=== PATIENT | female | born 1985 | race Caucasian/White ===

== ENCOUNTER → 2018-04-17 | Outpatient (CLI) | payer OTHER, MEDICAID ==
[2018-04-17 14:50] LABS: ALBUMIN 3.8 GM/DL (3.2-5.2); ALKALINE PHOSPHATASE 82 U/L (45-117); ALT/SGPT 26 U/L (12-78); ANION GAP 9 MEQ/L (8-16); AST/SGOT 17 U/L (7-37); BILIRUBIN,TOTAL 0.5 MG/DL (0.2-1.0); BLOOD UREA NITROGEN 10 MG/DL (7-18); CALCIUM LEVEL 8.8 MG/DL (8.5-10.1); CARBON DIOXIDE LEVEL 24 MEQ/L (21-32); CHLORIDE LEVEL 107 MEQ/L (98-107); CHOLESTEROL LEVEL 175 MG/DL (<200); CHOLESTEROL RISK RATIO 3.977 (<5); CREATININE FOR GFR 0.67 MG/DL (0.55-1.30); FREE T4 0.92 NG/DL (0.76-1.46); GLOMERULAR FILTRATION RATE > 60.0 (>60); GLUCOSE, FASTING 79 MG/DL (70-100); HDL CHOLESTEROL 44 MG/DL (>40); LDL CHOLESTEROL 109 MG/DL (<100); NON-HDL-C 131 MG/DL; SODIUM LEVEL 140 MEQ/L (136-145); TOTAL PROTEIN 7.2 GM/DL (6.4-8.2); TRIGLYCERIDES LEVEL 108 MG/DL (<150)
[2018-04-17 16:37] LABS: ALBUMIN/GLOBULIN RATIO 1.12 (1.00-1.93)
== END ==
LOC: M LAB 13:10
DX: E66.01 Morbid (severe) obesity due to excess calories (principal); I10 Essential (primary) hypertension
CPT/HCPCS: 84443

== ENCOUNTER → 2019-02-14 | Outpatient (CLI) | payer OTHER, MEDICAID | LOC: M SMT 14:03 | PROVIDERS: ATTEND Advanced Practice Midwife | DX: Z36.89 Encounter for other specified antenatal screening (principal); Z3A.00 Weeks of gestation of pregnancy not specified ==

== ENCOUNTER → 2019-04-16 | Outpatient (CLI) | payer OTHER ==
--- NOTE | 2019-04-16 11:46 | REP ---
OB ULTRASOUND: Real-time sonographic evaluation of gravid uterus performed. There is a single living intrauterine gestation, estimated gestational age 19 weeks 4 days, EDC 09/06/2019. Today's measurements indicate appropriate growth. BPD 46 mm = 19 weeks 5 days, 55th percentile HC 166 mm = 19 weeks 2 days, 42nd percentile AC 137 mm = 19 weeks 1 day, 40th percentile Femur length 29 mm = 18 weeks 5 days, 29th percentile HC/AC ratio 1.21 within normal range. Estimated weight 270 grams, 27th percentile. Cervix is closed and measures 3.3 cm in length. heart rate 145 beats per minute. SEEN/GROSSLY UNREMARKABLE Lateral ventricles Yes Posterior fossa Yes Upper lip Yes Four-chamber heart No LVOT Yes RVOT No Stomach Yes Cord insertion Yes Three vessel cord Yes Kidneys No Bladder Yes Spine No position: Variable. Placenta: Anterior and grade 0 with no previa or abruption. Amniotic fluid: Within normal limits. Electronically Signed by Johnnie Tinsley MD 04/17/2019 11:17 A
== END ==
LOC: M RAD 10:22
PROVIDERS: ATTEND Advanced Practice Midwife
DX: Z34.82 Encounter for supervision of other normal pregnancy, second trimester (principal)

== ENCOUNTER → 2019-05-02 | Outpatient (CLI) | payer OTHER ==
--- NOTE | 2019-05-03 03:07 | REP ---
Clinical: Anatomical evaluation. Comparison: 04/16/2019 . Findings: Examination demonstrates a single live intrauterine in transverse (head to maternal left) presentation. motion is identified by technologist. Placenta is noted anterior and grade O without evidence for placenta previa or abruption. Amniotic fluid volume is normal. Cervix measures 4.3 cm in length and appears closed. No evidence for nuchal cord. Gestational age by LMP 21 weeks 6 days with JAY 09/06/2019 . Gestational age by current measurements 21 weeks 4 days with JAY 09/26/2019 . FHR equals 157 beats per minute. BPD 5.2 cm 21 weeks 6 days HC 19.2 cm 21 weeks 3 days AC 16.7 cm 21 weeks 5 days FL 3.7 cm 21 weeks 6 days HL 3.2 cm 20 weeks 6 days HC/AC ratio 1.15 Estimated weight 446 grams ( 40th percentile). Anatomical assessment demonstrates normal structures including cranium, cavum, lungs, four-chamber heart/ventricular outflow tracts, diaphragm, stomach, cord insertion/three-vessel cord, kidneys/bladder, and spine. Impression: 1. Single live intrauterine in transverse lie demonstrating appropriate interval growth. 2. In conjunction with prior examination anatomical assessment is complete and normal. No gross abnormalities are identified. Electronically Signed by Rehan Arceo MD 05/03/2019 02:59 A
== END ==
LOC: M RAD 10:24
PROVIDERS: ATTEND Advanced Practice Midwife
DX: O10.012 Pre-existing essential hypertension complicating pregnancy, second trimester (principal); O32.2XX0 Maternal care for transverse and oblique lie, not applicable or unspecified; Z3A.21 21 weeks gestation of pregnancy

== ENCOUNTER → 2019-05-17 | Outpatient (CLI) | payer OTHER ==
[~2019-05-17] MED LIST: ALLE4TAB9; ASPI81TA26; LABE10TAB; LEVOTAB10; PRED10TA2; PREN29TA4 PO; SERT50TA29
[2019-05-17 16:05] LABS: ALBUMIN 2.7 GM/DL (3.2-5.2); ALT/SGPT 17 U/L (12-78); BILIRUBIN,DIRECT < 0.1 MG/DL (0.0-0.2); BILIRUBIN,TOTAL 0.2 MG/DL (0.2-1.0); TOTAL PROTEIN 6.9 GM/DL (6.4-8.2)
== END ==
LOC: M LAB 14:51
PROVIDERS: ATTEND Advanced Practice Midwife
DX: O26.86 Pruritic urticarial papules and plaques of pregnancy (PUPPP) (principal); Z3A.00 Weeks of gestation of pregnancy not specified

== ENCOUNTER 2019-05-27 16:21 | Outpatient (CLI) | payer OTHER ==
[~2019-05-27] VITALS: Ht 152.4 cm; Wt 106.0 kg
[2019-05-27 16:35] VITALS: BP 136/80
[2019-05-27] MEDS ORDERED: PROMETHAZINE 25 MG TAB PO ONE (16:45)
[2019-05-27] MEDS ORDERED: hydrOXYzine 50 MG TAB PO ONE (16:45)
[2019-05-27] MEDS ORDERED: LEVOTAB10 (17:17)
[2019-05-27] MEDS ORDERED: SERT50TA29 (17:17)
[2019-05-27] MEDS ORDERED: ALLE4TAB9 (17:17)
[2019-05-27] MEDS ORDERED: PREN29TA4 PO (17:17)
[2019-05-27] MEDS ORDERED: LABE10TAB (17:17)
[2019-05-27] MEDS ORDERED: PRED10TA2 (17:17)
[2019-05-27] MEDS ORDERED: ASPI81TA26 (17:17)
[2019-05-27 17:29] VITALS: BP 129/78
--- NOTE | 2019-05-28 09:45 | DSES ---
DATE OF ADMISSION: 05/27/2019 DATE OF DISCHARGE: 05/27/2019 HISTORY OF PRESENT ILLNESS: The patient is a 34-year-old female who is a 4, para 2-0-1-2 at 25.2 weeks' gestation with an estimated date of confinement (EDC) of 09/07/2019 based off of her last menstrual period (LMP) and consistent with her first-trimester ultrasound. The patient initiated care in her first trimester of . Her has been complicated by chronic hypertension which she is taking labetalol 200 mg twice a day for, AMA, obesity, severe anxiety which she is taking Zoloft for, and a pruritic urticarial papules and plaques of (PUPPP) rash. The patient presents to labor and delivery with complaints of decreased movement and with worsening PUPPP rash. The patient was placed on a prednisone taper 40 mg over 2 weeks and tapered off over the next 1-1/2 to 2 weeks. She reports that the areas that she was complaining about 10 days ago have healed and gotten better, but new areas are starting to arise. Due to the rash, she is having a difficult time sleeping. She reports decreased appetite related to this and states she is having a hard time coping. The patient has seen dermatology and has been given topical steroids with minimal relief. The patient reports that the topical steroids seem to make her PUPPP rash more severe. She has tried multiple topical creams, Medrol 4 mg tapering steroid, Benadryl, and allergy medications with minimal relief. PAST PREGNANCIES: In August 2004 at 38 weeks, the patient delivered a living female via vaginal delivery weighing 6 pounds 12 ounces with no complications. In June of 2009 at 38 weeks, the patient had a vaginal delivery of a living female weighing 5 pounds which was complicated by PUPPP and elevated blood pressure after delivery. In 2010 at 6 weeks, she had an induced . PAST MEDICAL HISTORY: Hypertension and anxiety. SURGICAL HISTORY: Elbow surgery. FAMILY HISTORY: Her father has hypertension, congestive heart failure, chronic obstructive pulmonary disease (COPD). Mother hypertension, hyperlipidemia, thyroid disease. Brother anxiety. Brother #2 epilepsy. Sister #1 hypertension and anxiety. Sister #2 hyperlipidemia. Paternal grandfather hypertension, congestive heart failure, diabetes. Maternal grandmother hypertension, hyperlipidemia, stroke. Maternal grandfather COPD. SOCIAL HISTORY: The patient is . She does not have a history of abuse. She denies being a smoker. She denies any alcohol abuse prior to or during and no drug abuse or use prior to or during . The patient has no history of any sexually-transmitted infection. OBJECTIVE: Vital signs: Blood pressure is 136/80, heart rate is 105, respiratory rate is 20, temperature is 98.0, repeat blood pressure 129/78, heart rate is 85, and SpO2 is 97%. heart rate is 155 beats per minute and appropriate for 25 weeks' gestation. The patient has no contractions. General: Alert and oriented times three. Respiratory: Regular rate and rhythm with no use of accessory muscles. Abdomen: Gravid and nontender to palpation. Skin: Multiple plaques noted over abdomen, thighs, lower legs, feet, and upper arms, and breasts. No blisters noted. Some excoriation galan were noted over plaques. No apparent cellulitis noted with complete inspection of the body. ASSESSMENT: Intrauterine (IUP) at 25 weeks 2 days' gestation, decreased movement, pruritic urticarial papules and plaques of rash. PLAN: The patient's case reviewed with Dr. Gómez. Dr. Gómez in to assess the patient's skin and rash. Agree that it is a PUPPP rash. The patient given 50 mg of Vistaril in the hospital with 25 mg of promethazine. Vistaril is given to help with itching, promethazine to help induce some sleep since the patient is very concerned over her lack of sleep in the last few weeks. After the patient has had the Vistaril in her system for an hour, she reports a decrease in itching. 25 mg of Vistaril sent to her pharmacy and directed that she could take it every 6 hours as needed. Promethazine 25 mg also sent to pharmacy to help induce sleep at night. The patient reports after being in labor and delivery and being monitored, that she has had multiple movements. The patient discharged to home with family with precautions. She is to followup on 05/31/2019 with her appointment at 1:45 p.m. She reviewed access to care, kick count, labor signs, leaking of fluid, abdominal trauma, and danger signs to report. BELLA
== END 2019-05-27 18:25 | disposition home or self-care (01) ==
LOC: M LDO 16:21
PROVIDERS: ATTEND Advanced Practice Midwife
DX: O36.8120 Decreased fetal movements, second trimester, not applicable or unspecified (principal); O26.86 Pruritic urticarial papules and plaques of pregnancy (PUPPP); O99.342 Other mental disorders complicating pregnancy, second trimester; F41.9 Anxiety disorder, unspecified; Z3A.25 25 weeks gestation of pregnancy

== ENCOUNTER 2019-06-05 09:36 | Emergency (ER) | payer OTHER ==
[~2019-06-05] VITALS: Ht 149.9 cm; Wt 107.1 kg
[2019-06-05] MEDS ORDERED: VIST25CA PO (09:47)
[2019-06-05] MEDS ORDERED: hydrOXYzine 25 MG TAB PO ONE (10:00)
[2019-06-05] MEDS ORDERED: LABETALOL 100 MG TAB PO ONE (10:00)
[2019-06-05 10:18] LABS: BASO # 0.1 10^3/uL (0.0-0.2); BASO % 0.3 % (0.0-1.0); EOS # 3.6 10^3/uL (0.0-0.5); HEMATOCRIT 38.6 % (36.0-47.0); HEMOGLOBIN 13.1 g/dl (12.0-15.5); LYMPH # 2.5 10^3/uL (1.5-5.0); LYMPH % 14.9 % (24.0-44.0); MEAN CORPUSCULAR HEMOGLOBIN 32.1 pg (27.0-33.0); MEAN CORPUSCULAR HGB CONC 33.9 g/dl (32.0-36.5); MEAN CORPUSCULAR VOLUME 94.6 fl (80.0-96.0); MONO # 0.6 10^3/uL (0.0-0.8); MONO % 3.8 % (0.0-5.0); NEUTROPHILS % 59.2 % (36.0-66.0); PLATELET COUNT, AUTOMATED 323 10^3/uL (150-450); RED BLOOD COUNT 4.08 10^6/uL (4.00-5.40); WHITE BLOOD COUNT 16.8 10^3/uL (4.0-10.0)
[2019-06-05 10:30] LABS: APPEARANCE, URINE CLOUDY (CLEAR); BACTERIA, URINE AUTO 2+ (NEGATIVE); BILIRUBIN, URINE AUTO NEGATIVE (NEGATIVE); BLOOD, URINE BLOOD NEGATIVE (NEGATIVE); COLOR, URINE AMBER (YELLOW); GLUCOSE, URINE (UA) AUTO NEGATIVE (NEGATIVE); KETONE, URINE AUTO TRACE mg/dL (NEGATIVE); LEUKOCYTE ESTERASE, URINE AUTO 3+ (NEGATIVE); MUCUS, URINE SMALL (NEGATIVE); NITRITE, URINE AUTO NEGATIVE (NEGATIVE); PROTEIN, URINE AUTO 1+ mg/dL (NEGATIVE); RBC, URINE AUTO 9 /HPF (0-3); SPECIFIC GRAVITY URINE AUTO 1.027 (1.002-1.035); SQUAMOUS EPITHELIAL CELL UR AU 27 /HPF (0-6); UROBILINOGEN, URINE AUTO 0.2 mg/dL (0.0-2.0); WBC, URINE AUTO 30 /HPF (0-3)
[2019-06-05 10:46] LABS: ALBUMIN 2.4 GM/DL (3.2-5.2); ALT/SGPT 17 U/L (12-78); BILIRUBIN,DIRECT < 0.1 MG/DL (0.0-0.2); BILIRUBIN,TOTAL 0.2 MG/DL (0.2-1.0); BLOOD UREA NITROGEN 8 MG/DL (7-18); CALCIUM LEVEL 8.8 MG/DL (8.5-10.1); CARBON DIOXIDE LEVEL 25 MEQ/L (21-32); CHLORIDE LEVEL 110 MEQ/L (98-107); GLOMERULAR FILTRATION RATE > 60.0 (>60); GLUCOSE, FASTING 109 MG/DL (70-100); POTASSIUM SERUM 4.3 MEQ/L (3.5-5.1); SODIUM LEVEL 142 MEQ/L (136-145); TOTAL PROTEIN 6.2 GM/DL (6.4-8.2)
[2019-06-05 10:51] LABS: EOS % 21.4 % (0.0-3.0)
[2019-06-05 11:15] VITALS: BP 134/82
== END 2019-06-05 11:42 | disposition home or self-care (01) ==
LOC: M ED 09:36
DX: O26.86 Pruritic urticarial papules and plaques of pregnancy (PUPPP) (principal); O10.92 Unspecified pre-existing hypertension complicating childbirth; Z3A.26 26 weeks gestation of pregnancy; Z79.899 Other long term (current) drug therapy; Z79.82 Long term (current) use of aspirin

== ENCOUNTER → 2019-06-12 | Outpatient (CLI) | payer OTHER ==
[~2019-06-12] MED LIST changes: +VIST25CA PO
[2019-06-12 12:46] LABS: HEMATOCRIT 34.7 % (36.0-47.0); HEMOGLOBIN 11.4 g/dl (12.0-15.5); MEAN CORPUSCULAR HEMOGLOBIN 31.9 pg (27.0-33.0); MEAN CORPUSCULAR HGB CONC 32.9 g/dl (32.0-36.5); MEAN CORPUSCULAR VOLUME 97.2 fl (80.0-96.0); PLATELET COUNT, AUTOMATED 335 10^3/uL (150-450); RED BLOOD COUNT 3.57 10^6/uL (4.00-5.40); WHITE BLOOD COUNT 11.6 10^3/uL (4.0-10.0)
== END ==
LOC: M LAB 11:00
PROVIDERS: ATTEND Advanced Practice Midwife
DX: O10.012 Pre-existing essential hypertension complicating pregnancy, second trimester (principal)

== ENCOUNTER → 2019-07-03 | Outpatient (CLI) | payer OTHER ==
--- NOTE | 2019-07-03 11:53 | REP ---
Clinical: well-being Comparison: 05/02/2019 . Findings: Examination demonstrates a single live intrauterine in cephalic presentation. motion is identified by technologist. Placenta is noted anterior and grade I without evidence for placenta previa or abruption. Amniotic fluid volume is normal. Cervix measures 3.8 cm in length and appears closed. No evidence for nuchal cord. Gestational age by LMP 30 weeks 4 days with JAY 09/07/2019 . Gestational age by current measurements 29 weeks 6 days with JAY 09/12/2019 . FHR equals 153 beats per minute. BPD 7.6 cm 30 weeks 2 days HC 27.4 cm 30 weeks 0 days AC 24.8 cm 29 weeks 0 days FL 5.7 cm 29 weeks 5 days HL 5.2 cm 30 weeks 4 days HC/AC ratio 1.11 Estimated weight 1387 grams ( 18th percentile). Amniotic fluid index: 16.4 cm Impression: Single live intrauterine in cephalic presentation demonstrating appropriate interval growth. No gross abnormalities are identified. Electronically Signed by Rehan Arceo MD 07/03/2019 11:44 A
== END ==
LOC: M RAD 10:36
PROVIDERS: ATTEND Advanced Practice Midwife
DX: O10.012 Pre-existing essential hypertension complicating pregnancy, second trimester (principal); O99.712 Diseases of the skin and subcutaneous tissue complicating pregnancy, second trimester; Z3A.29 29 weeks gestation of pregnancy

== ENCOUNTER 2019-07-11 14:52 | Inpatient (IN) | payer OTHER ==
[~2019-07-11] VITALS: Ht 152.4 cm; Wt 112.4 kg
[2019-07-11] VITALS (21 sets, daily range): BP systolic 141–196; BP diastolic 73–109
[2019-07-11] MEDS ORDERED: VIST50CA PO (15:23)
[2019-07-11] MEDS ORDERED: PROM25TA12 PO (15:30)
[2019-07-11] MEDS: SLF 3 ML SYR IV PRN (16:06)
[2019-07-11] MEDS ORDERED: LABETALOL HCL 100 MG/20 ML VIAL IV STA (16:20)
[2019-07-11] MEDS ORDERED: LABETALOL HCL 100 MG/20 ML VIAL As Ordered ONE (16:22)
--- NOTE | 2019-07-11 16:41 | REP ---
Clinical: Maternal hypertension Comparison: 07/03/2019 . Findings: Examination demonstrates a single live intrauterine in cephalic presentation. motion is identified by technologist. Placenta is noted a anterior and grade I without evidence for placenta previa or abruption. Amniotic fluid volume is normal. Cervix measures 4.0 cm in length and appears closed. No evidence for nuchal cord. Gestational age by LMP 31 weeks 5 days with JAY 09/07/2019 . FHR equals 156 beats per minute. Biophysical profile score: 8/8 The attic fluid index: 11.8 cm (8.7 - 24.1) Umbilical cord SD ratio: 3.63 Impression: Single live advanced gestation in cephalic presentation. Biophysical profile score and amniotic fluid volume are normal. Electronically Signed by Rehan Arceo MD 07/11/2019 04:32 P
[2019-07-11 16:58] LABS: HEMATOCRIT 38.1 % (36.0-47.0); MEAN CORPUSCULAR HEMOGLOBIN 32.3 pg (27.0-33.0); MEAN CORPUSCULAR HGB CONC 34.1 g/dl (32.0-36.5); MEAN CORPUSCULAR VOLUME 94.5 fl (80.0-96.0); PLATELET COUNT, AUTOMATED 353 10^3/uL (150-450); RED BLOOD COUNT 4.03 10^6/uL (4.00-5.40); WHITE BLOOD COUNT 14.3 10^3/uL (4.0-10.0)
[2019-07-11 17:07] LABS: TOTAL PROTEIN,RANDOM URINE 40.8 MG/DL (0.0-12.0)
[2019-07-11 17:09] LABS: ALT/SGPT 23 U/L (12-78); BILIRUBIN,TOTAL 0.2 MG/DL (0.2-1.0); CREATININE FOR GFR 0.92 MG/DL (0.55-1.30); GLOMERULAR FILTRATION RATE > 60.0 (>60); LDH LACTATE DEHYDROGENASE 227 U/L (84-246); URIC ACID 4.7 MG/DL (2.6-6.0)
[2019-07-11] MEDS: BETAMETHASONE SOLUSPAN 6MG/ML INJ 5ML (J0702) IM SCH (17:31)
[2019-07-11] MEDS ORDERED: LABETALOL 200 MG TAB PO SCH (18:00)
[2019-07-11] MEDS ORDERED: SERTRALINE HCL 50 MG TAB PO SCH (22:00)
[2019-07-11] MEDS ORDERED: LABETALOL HCL 100 MG/20 ML VIAL IV ONE ×2 (22:45→23:45)
[2019-07-11] MEDS: SLF 3 ML SYR IV SCH (22:48)
[2019-07-12] VITALS (44 sets, daily range): BP systolic 128–187; BP diastolic 63–105
[2019-07-12] MEDS ORDERED: CALCIUM CARBONATE 500 MG CHEW U/D PO PRN (00:30)
[2019-07-12] MEDS ORDERED: LABETALOL HCL 100 MG/20 ML VIAL IV ONE (01:30)
[2019-07-12] MEDS ORDERED: LABETALOL 200 MG TAB PO SCH (04:16)
[2019-07-12] MEDS: SLF 3 ML SYR IV SCH ×3 (04:37→21:31)
--- NOTE | 2019-07-12 06:34 | HPE ---
DATE OF ADMISSION: 07/11/2019 CHIEF COMPLAINT: Elevated blood pressure HISTORY OF PRESENT ILLNESS: This patient is a 34-year-old, 4, para 2, who presents at 31 weeks 5 days estimated gestational age by her last menstrual period and confirmed by first trimester ultrasound here for evaluation for elevated blood pressure. This patient has known chronic hypertension. She has been seen in the office earlier this afternoon and was noted to have severe range blood pressure. She was sent to Labor and Delivery for further evaluation. She denies any visual changes, abdominal pain, headache. Reports active movement. Also denies vaginal bleeding, leakage of fluid or contractions. Her course is remarkable for chronic hypertension and she was initially on atenolol and was switched to labetalol 200 mg twice a day. She is also complicated by pruritic urticarial papules and plaques (PUPPS). She has been on prednisone for approximately 2 months. Also, history of anxiety. PAST MEDICAL HISTORY: 1. Chronic hypertension. 2. Anxiety. PAST SURGICAL HISTORY: She has had repair of a broken arm. OBSTETRICAL HISTORY: She is 4, para 2. She has had two 2 vaginal deliveries. She is proven to 6 pounds 12 ounces. MEDICATIONS: Include prednisone, baby aspirin, Zoloft and labetalol 100 mg twice a day. SOCIAL HISTORY: Denies any alcohol, tobacco or drug use during her . PHYSICAL EXAMINATION: Vital Signs: She has serial blood pressures which are intermittently severe range. Her highest blood pressure is 196/97. She has a category one rate tracing. General Appearance: Well appearing, in no acute distress. Neurologically, she is grossly intact. Her lungs are clear to auscultation bilaterally. Cardiovascular: Heart regular rate and rhythm. Abdomen is gravid, nontender. LABS: Blood type is A+. Antibody screen is negative. Rubella is immune. RPR is nonreactive. Hepatitis surface antigen negative. HIV is negative. Hepatitis C nonreactive. Chlamydia and gonorrhea screens negative. She had elevated 1-hour Glucola with a normal 3-hour glucose tolerance test. Upon evaluation, she had a spot urine of 0.27. She had normal pre-eclamptic labs. Her platelets are 353. IMAGING STUDIES: She had a growth ultrasound and biophysical profile showing 8 out of 8 BPP, amniotic fluid 11.8. ASSESSMENT: This patient is a 34-year-old, 4, para 2, at 31 weeks 5 days estimated gestational age with chronic hypertension concerning for superimposed preeclampsia. Blood pressure elevation potentially secondary to prolonged steroid use. The patient is currently weaning off of her prednisone. Reassuring status. PLAN: 1. To increase her oral labetalol from 100 mg twice a day to 200 mg twice a day. 2. Intravenous labetalol per protocol as needed for severe blood pressures. 3. Steroids for lung maturity. 4. Continue to observe and manage blood pressure.
[2019-07-12] MEDS: NIFEdipine 10 MG CAP PO SCH ×3 (08:07→22:02)
[2019-07-12] MEDS: SLF 3 ML SYR IV PRN (10:15)
--- NOTE | 2019-07-12 11:54 | REP ---
Clinical: Nonreactive stress test. well-being. Comparison: 07/11/2019 . Findings: Examination demonstrates a single live intrauterine in cephalic presentation. motion is identified by technologist. Placenta is noted anterior and grade I without evidence for placenta previa or abruption. Amniotic fluid volume is normal. Cervix measures 4.7 cm in length and appears closed. No evidence for nuchal cord. Gestational age by LMP 31 weeks 6 days with JAY 09/07/2019 . FHR equals 141 beats per minute. Biophysical profile score: 8/8 Amniotic fluid index: 12.0 cm Umbilical cord SD ratio: 3.04 Impression: Single live advanced gestation in cephalic presentation. Biophysical profile score and amniotic fluid volume are normal. Electronically Signed by Rehan Arceo MD 07/12/2019 11:45 A
[2019-07-12] MEDS ORDERED: LABETALOL 200 MG TAB As Ordered ONE (11:56)
[2019-07-12] MEDS: LABETALOL 200 MG TAB PO SCH ×2 (11:58→19:50)
[2019-07-12] MEDS ORDERED: LR 1,000 ML IV ONE (13:45)
[2019-07-12] MEDS: predniSONE 10 MG TAB PO SCH (16:05)
[2019-07-12] MEDS: BETAMETHASONE SOLUSPAN 6MG/ML INJ 5ML (J0702) IM SCH (17:36)
--- NOTE | 2019-07-12 19:34 | IPNPDOC ---
Text Note Date of Service The patient was seen on 07/12/19. NOTE Pt has continued to exhibit labile blood pressures despite increased labetalol and addition of nifedipine. Fetus difficult to trace due to activity and maternal habitus. BPP 03/14. Per consult Dr Jones, taper doses of prednisone have been initiated starting @ 30mg daily x 2 days. She is now betamethasone complete. Change to inpatient status and reasses for delivery plans in am. VS,Fishbone, I+O VS, Fishbone, I+O Vital Signs Date Time Temp Pulse Resp B/P (MAP) Pulse Ox O2 Delivery O2 Flow Rate FiO2 07/12/19 18:49 99 18 159/82 (107) 07/12/19 16:55 98.5 Mariluz Cisneros CNM Jul 12, 2019 19:34
[2019-07-12] MEDS ORDERED: hydrOXYzine 50 MG TAB PO SCH (21:00)
[2019-07-12] MEDS ORDERED: PRENATAL VITAMINS CHEWABLE TABLET PO SCH (21:00)
[2019-07-12] MEDS ORDERED: SERTRALINE HCL 50 MG TAB PO SCH (21:00)
[2019-07-13] VITALS (11 sets, daily range): BP systolic 138–159; BP diastolic 68–90
[2019-07-13] MEDS ORDERED: LABETALOL 200 MG TAB PO SCH (06:00)
[2019-07-13] MEDS ORDERED: ACETAMINOPHEN TAB 650MG DOSE (2X325MG) As Ordered ONE (06:23)
[2019-07-13] MEDS: SLF 3 ML SYR IV SCH (06:25)
[2019-07-13] MEDS ORDERED: ACETAMINOPHEN TAB 650MG DOSE (2X325MG) PO ONE (06:30)
[2019-07-13] MEDS ORDERED: SODIUM CHLORIDE NASAL 0.65% SPRAY BTL (OCEAN) PRN (06:30)
[2019-07-13] MEDS ORDERED: NIFEdipine 10 MG CAP PO SCH (08:00)
[2019-07-13] MEDS: predniSONE 10 MG TAB PO SCH (08:55)
[2019-07-13] MEDS ORDERED: LABE20TAB PO (11:09)
[2019-07-13] MEDS ORDERED: NIFE10CA2 PO (11:09)
[2019-07-13] MEDS ORDERED: PRED20TA PO (11:10)
--- NOTE | 2019-07-13 21:34 | DSES ---
DATE OF ADMISSION: 07/12/2019 DATE OF DISCHARGE: 07/13/2019 34-year-old, 4, para 2-0-1-2 female at 31-5/7 weeks gestation is admitted after experiencing severe range blood pressures in the office. She has a known history of chronic hypertension and has been on labetalol 200 mg twice a day. She also had severe pruritic urticarial papules and plaques of (PUPPP) rash during and has been on chronic oral steroids. She denies other symptoms. HOSPITAL COURSE: The patient was admitted on 07/12/2019. She had a preeclampsia workup which was negative. She had a biophysical profile each day of her hospitalization which was reassuring at 8/8. Excellent movement was noted. Patient's severe range blood pressures required multiple doses of IV labetalol. She subsequently was changed to labetalol 200 mg twice a day and nifedipine 10 mg three times a day. This regimen along with bed rest did improve her blood pressures. On 07/13/2019, she was deemed stable for discharge. ADMISSION DIAGNOSES: at 31-5/7 weeks, chronic hypertension. DISCHARGE DIAGNOSES: at 31-5/7 weeks, chronic hypertension. DISPOSITION: The patient will take blood pressure medicines as ordered. She will followup in the office early the following week for evaluation. She will also check blood pressures at home. She plans to stop working at this point and will maintain modified bed rest at home.
== END 2019-07-13 11:15 | disposition home or self-care (01) | DRG 566 ==
LOC: M LDO 14:52 → M LDI 07-12 20:15
PROVIDERS: ADMIT Advanced Practice Midwife; ATTEND Specialist
DX: O10.013 Pre-existing essential hypertension complicating pregnancy, third trimester (principal); Z3A.31 31 weeks gestation of pregnancy; O26.86 Pruritic urticarial papules and plaques of pregnancy (PUPPP)

== ENCOUNTER 2019-07-17 09:12 | Inpatient (IN) | payer OTHER ==
[2019-07-17] VITALS (27 sets, daily range): BP systolic 138–166; BP diastolic 64–96
[~2019-07-17] VITALS: Ht 152.4 cm; Wt 110.4 kg
[~2019-07-17 09:12] MED LIST changes: +LABE20TAB PO; +NIFE10CA2 PO; +PRED20TA PO; +PROM25TA12 PO; +VIST50CA PO
[2019-07-17 10:24] LABS: HEMOGLOBIN 13.1 g/dl (12.0-15.5); MEAN CORPUSCULAR HEMOGLOBIN 32.5 pg (27.0-33.0); MEAN CORPUSCULAR HGB CONC 33.6 g/dl (32.0-36.5); MEAN CORPUSCULAR VOLUME 96.8 fl (80.0-96.0); PLATELET COUNT, AUTOMATED 305 10^3/uL (150-450); RED BLOOD COUNT 4.03 10^6/uL (4.00-5.40); WHITE BLOOD COUNT 10.9 10^3/uL (4.0-10.0)
[2019-07-17 10:37] LABS: TOTAL PROTEIN,RANDOM URINE 23.2 MG/DL (0.0-12.0)
[2019-07-17 10:56] LABS: ALT/SGPT 24 U/L (12-78); BILIRUBIN,TOTAL 0.2 MG/DL (0.2-1.0); GLOMERULAR FILTRATION RATE > 60.0 (>60); LDH LACTATE DEHYDROGENASE 191 U/L (84-246); URIC ACID 3.8 MG/DL (2.6-6.0)
[2019-07-17] MEDS ORDERED: hydrALAZINE INJ 20 MG/ML VIAL IV ONE (12:00)
[2019-07-17] MEDS ORDERED: hydrALAZINE INJ 20 MG/ML VIAL IV STA (12:22)
[2019-07-17] MEDS ORDERED: LABETALOL HCL 100 MG/20 ML VIAL IV STA (12:32)
[2019-07-17] MEDS: miSOPROStol 50 MCG 1/2 TAB (S0191) PO SCH ×3 (12:53→21:00)
[2019-07-17] MEDS: LABETALOL 200 MG TAB PO SCH ×2 (13:23→22:05)
[2019-07-17] MEDS ORDERED: CLON0.5T2 PO (14:40)
--- NOTE | 2019-07-17 15:41 | HPE ---
DATE OF ADMISSION: 07/17/2019 Kendra is a 34-year-old, 4, para 2-0-1-2, 32-4/7 weeks gestation, EDC of 09/07/2018. She presents to labor and delivery following a routine appointment at the office where she was found to have severe range blood pressure. She does deny headaches, visual disturbances, epigastric pain and right upper quadrant pain. She denies contractions, vaginal bleeding and leakage of fluid. The fetus has been active. care was initiated at [facility] in the first trimester. course complicated by chronic hypertension where she had been taking labetalol 200 mg twice a day. Approximately 1 week ago she was seen in the office and the found to have severe range pressures at that time. She was sent to labor and delivery where she underwent continuous observation for blood pressure. She is beta complete. Her hypertensive medications were adjusted. Currently she is taking labetalol 200 mg three times a day and Procardia 10 mg three times a day in which she did present again today with pressures that were not controlled with those medications. Her course also complicated by pruritic urticarial papules (PUPs) during this , anxiety, advanced maternal age. She did have testing that showed low risk aneuploidy, obesity as well. OBSTETRIC HISTORY: August 2004 - 38 weeks gestation, 6 pounds 12 ounces female, vaginal delivery, induction of labor. June 2009 - 38 weeks, 5 pound female, vaginal delivery, PUPs and elevated blood pressure. 2010 - 6 week spontaneous miscarriage. OBSTETRIC LABS A positive, antibody screen negative, rubella immune, VDRL nonreactive. Urine culture no growth. Hep B surface antigen negative. HIV negative. Hep C antibody nonreactive. Gonorrhea and chlamydia negative. She had an early gestational diabetic screening that she did fail, she did however undergo a 3-hour glucose tolerance test and did pass that and repeated at test and passed once again. She had baseline pre-eclamptic labs and a spot urine. Her baseline spot urine was 0.11. Repeat last week with a spot urine of 0.217 with normal pre-eclamptic labs. GBS is unknown. The culture was obtained today upon arrival to labor and delivery. She has been taking baby aspirin due to her risk for preeclampsia, superimposed. PAST MEDICAL HISTORY: Chronic hypertension, anxiety. SURGERIES: A fractured elbow. FAMILY HISTORY: Diabetes and congestive heart failure. SOCIAL HISTORY: The patient is single. There is a father of the baby, however, he is not present today. She denies history of sexually transmitted infections. Denies history of abuse, physical, sexual or emotional. She is a nonsmoker. Denies alcohol use. Denies drug use. ALLERGIES: No known drug allergies. CURRENT MEDICATIONS: - labetalol 200 mg by mouth three times a day - prednisone 20 mg daily - Zoloft 50 mg daily - Procardia 10 mg three times a day - She does report that she has taken two Klonopin today, 0.5 mg for anxiety. She was advised earlier in the to stop the Klonopin. She reports her anxiety was severe so that is why she took the Klonopin today. OBJECTIVE: She is alert and oriented times three. She is in no apparent distress, smiling and talkative. BP is in the severe range 160/92, 160/92, 156/88, 162/91, 166/94, 164/82. She did return to reasonable blood pressure 138/66, 150/64 following two doses of IV hydralazine and one dose of IV labetalol and her regularly scheduled by mouth labetalol. heart rate is 150 with minimal to moderate variability, there are no accelerations, no decelerations. There have been one 10 x 10 accelerations observed. There is no pattern of regular contractions. Her abdomen is gravid, cephalic presentation per ultrasound on 07/12. Sterile vaginal exam - she is a fingertip, 50% effaced, minus three station, posterior moderate texture. No show with the exam. ASSESSMENT: Intrauterine at 32-4/7 weeks. heart rate category II, chronic hypertension with superimposed preeclampsia, severe range blood pressure, uncontrolled by mouth antihypertensives. PLAN: Per consult with Dr. Angel Jones. Admit the patient to labor and delivery. Routine labs - she has undergone a repeat pre-eclamptic labs which remain stable. Her spot urine today is 0.26. Access regular diet right now. Stop by mouth prednisone as the patient has been tapering the last 2 weeks. Risks, benefits and alternatives have been reviewed with the patient, she and her family's questions have been answered. She has been verbally consented for emergency surgery and blood products if they are necessary. Misoprostol 50 mcg by mouth every 4 hours for cervical ripening. I do anticipate cervical ripening.
[2019-07-17] MEDS: NIFEdipine 10 MG CAP PO SCH ×2 (16:19→23:08)
[2019-07-17] MEDS ORDERED: SERTRALINE HCL 50 MG TAB PO SCH (22:00)
[2019-07-17] MEDS ORDERED: ACETAMINOPHEN 500 MG TAB PO ONE (23:30)
[2019-07-18] VITALS (12 sets, daily range): BP systolic 135–155; BP diastolic 67–94
[2019-07-18] MEDS: miSOPROStol 50 MCG 1/2 TAB (S0191) PO SCH ×2 (01:31→06:13)
[2019-07-18] MEDS ORDERED: PENICILLIN G POTASSIUM IV 5 MU in D5W MINI-BAG PLUS 100 ML IV STA ×2 (05:36→13:14)
[2019-07-18] MEDS: LABETALOL 200 MG TAB PO SCH ×2 (06:10→14:26)
[2019-07-18] MEDS: NIFEdipine 10 MG CAP PO SCH (07:59)
[2019-07-18] MEDS ORDERED: LR 1,000 ML IV SCH ×2 (09:27→18:45)
[2019-07-18] MEDS ORDERED: OXYTOCIN DRIP 30 UNITS in IV 1 EA IV SCH ×2 (09:30→18:23)
[2019-07-18] MEDS ORDERED: PENICILLIN G POTASSIUM IV 2.5 MU in IV 1 EA IV SCH ×2 (09:45→18:00)
[2019-07-18] MEDS ORDERED: FENTANYL 2MCG/ML ROPIVACAINE 0.2% IN 0.9% NACL 100ML IVBAG As Ordered ONE (16:08)
[2019-07-18] MEDS ORDERED: EPIDURAL COMMENT XX SCH (16:45)
[2019-07-18] MEDS ORDERED: REFRIGERATOR IV KEYS XX PRN (16:45)
[2019-07-18] MEDS ORDERED: ePHEDrine SULFATE 25 MG/5 ML(5MG/ML) SYRINGE IV PRN (16:45)
[2019-07-18] MEDS ORDERED: ONDANSETRON 4MG/2ML VIAL (J2405) IV PRN ×4 (16:45→18:45)
[2019-07-18] MEDS ORDERED: FENTANYL/ROPIVACAINE/NACL BAG 100 ML EPIDURAL SCH (16:45)
[2019-07-18] MEDS ORDERED: diphenhydrAMINE INJ 50MG/ML VIAL (J1200) IV PRN ×2 (16:45→17:41)
[2019-07-18] MEDS ORDERED: EPIDURAL/PCA KEYS XX PRN (16:45)
[2019-07-18] MEDS ORDERED: NALOXONE INJ 0.4 MG/1 ML VIAL (J2310) IV PRN ×3 (16:45→17:41)
[2019-07-18] MEDS ORDERED: ceFAZolin 2 GM/D5W 50 ML IV BAG (J0690 PER 500MG) As Ordered ONE (17:15)
[2019-07-18] MEDS ORDERED: BICITRA 30ML SOLN UDC PO ONE (17:15)
[2019-07-18] MEDS ORDERED: ceFAZolin SOD 2 GM in IV 1 EA IV ONE (17:15)
[2019-07-18] MEDS ORDERED: BICITRA 30ML SOLN UDC As Ordered ONE (17:15)
[2019-07-18] MEDS ORDERED: NALBUPHINE HCL 10 MG/ML AMP (J2300) IV PRN (17:41)
[2019-07-18] MEDS ORDERED: METOCLOPRAMIDE INJ 10MG/2ML VIAL (J2765) IV PRN ×2 (17:41→18:45)
[2019-07-18] MEDS ORDERED: OXYTOCIN INJ 10 UNITS/ML VIAL (J2590) As Ordered ONE (17:53)
[2019-07-18] MEDS ORDERED: MORPHINE PRES-FREE INJ 10 MG/10 ML VIAL (J2274) As Ordered ONE (17:53)
[2019-07-18] MEDS ORDERED: ONDANSETRON 4MG/2ML VIAL (J2405) As Ordered ONE ×2 (17:55→19:07)
[2019-07-18] MEDS ORDERED: KETOROLAC 60 MG/2 ML VIAL (J1885) As Ordered ONE (17:55)
[2019-07-18] MEDS ORDERED: dexameTHASONE 4 MG/ML 1ML VIAL (J1100) As Ordered ONE (17:55)
[2019-07-18] MEDS ORDERED: ePHEDrine SULFATE 25 MG/5 ML(5MG/ML) SYRINGE As Ordered ONE (18:09)
[2019-07-18] MEDS ORDERED: PHENYLephrine HCL 500 MCG/5 ML (100MCG/ML) SYRINGE (J2370) As Ordered ONE (18:09)
[2019-07-18 18:10] LABS: CORD GAS ABE A -1.2; CORD GAS HCO3 A 26.6 MEQ/L; CORD GAS PCO2 A 56.1 mmHg; CORD GAS PH A 7.294 UNITS; CORD GAS PO2 A 29.5 mmHg; CORD GAS SBC A 22.7 MEQ/L; CORD GAS TCO2 A 28.3 MEQ/L
[2019-07-18 18:12] LABS: CORD GAS ABE V -1.7; CORD GAS HCO3 V 23.9 MEQ/L; CORD GAS O2 SAT V 74.1 %; CORD GAS PCO2 V 43.6 mmHg; CORD GAS PH V 7.357 UNITS; CORD GAS PO2 V 30.4 mmHg; CORD GAS SBC V 22.4 MEQ/L; CORD GAS TCO2 V 25.3 MEQ/L
[2019-07-18] MEDS ORDERED: PERCOCET 5MG/325MG TAB PO PRN ×2 (18:30→18:45)
[2019-07-18] MEDS ORDERED: MAG Sulf (L&D) 4 GM/100 ML 4 GM in IV 1 EA IV ONE (18:30)
[2019-07-18] MEDS ORDERED: MEASLES,MUMPS,RUBELLA VACCINE INJ (MMR-II) (90707) SC SCH (18:30)
[2019-07-18] MEDS ORDERED: RHOGAM 300 MCG (1500 IU) INJ (J2790) IM SCH (18:30)
[2019-07-18] MEDS ORDERED: MAGNESIUM SULFATE 4% INJ 20GM/500ML (40MG/ML) (J3475) As Ordered ONE (18:43)
[2019-07-18] MEDS ORDERED: MAGNESIUM *L&D* 4 GM/100 ML BAG (40MG/ML) (J3475) As Ordered ONE (18:44)
[2019-07-18] MEDS ORDERED: MEPERIDINE INJ 25 MG/ML VIAL (J2175) IV PRN (18:45)
[2019-07-18] MEDS ORDERED: fentaNYL 100 MCG/2 ML INJECTION (J3010) IV PRN (18:45)
[2019-07-18] MEDS: MAG Sulf (OBGYN) 20GM/500ML 20,000 MG in IV 1 EA IV SCH (19:14)
[2019-07-18] MEDS ORDERED: METOCLOPRAMIDE INJ 10MG/2ML VIAL (J2765) As Ordered ONE (20:29)
--- NOTE | 2019-07-18 22:42 | RO ---
DATE OF PROCEDURE: 07/18/2019 PREPROCEDURE DIAGNOSIS: 32-5/7 weeks gestation, chronic hypertension with superimposed preeclampsia, category 3 heart rate tracing, undesired fertility. POSTPROCEDURE DIAGNOSIS: 32-5/7 weeks gestation, chronic hypertension with superimposed preeclampsia, category 3 heart rate tracing, undesired fertility. PROCEDURE: Primary low transverse section, bilateral tubal ligation. SURGEON: Angel Jones MD AUTOMOTIVE GLASS TECHNICIAN: Meng Muller MD ANESTHESIA: Epidural. ESTIMATED BLOOD LOSS: 600 mL. URINE OUTPUT: 100 mL. FINDINGS: 1470 grams, 3 pound 4 ounce female , scores 9 and 9. Normal uterus, fallopian tubes and ovaries. Clear amniotic fluid. DESCRIPTION OF PROCEDURE: The patient was taken to the operating room where epidural anesthesia was adequate. She was prepped and draped in the sterile fashion in the supine position. A Key catheter was already in place. A Pfannenstiel skin incision was made with a scalpel, carried through to the fascia. The fascia was nicked and extended. The fascia was dissected off the rectus muscles. Peritoneal cavity was entered. A bladder flap was created. A curvilinear incision was made in the lower uterine segment until clear fluid was noted. This was extended manually. Infant was delivered from the vertex position without difficulty. The cord was doubly clamped and cut. The infant was handed off to the awaiting facilities director. The placenta was expressed. The uterus was exteriorized. The uterine incision was closed with #0 Vicryl in a running locked fashion. A second imbricating layer of #0 Vicryl was placed. Attention was turned to the fallopian tubes. A Sasabe clamp was placed in the mid portion of the tubes. A window was created in the broad ligament. A free tie of #3-0 chromic was placed around a knuckle of tube on either side of the clamps. A segment of tube was excised bilaterally and sent to pathology. The uterus was placed back in the abdominal cavity. Good hemostasis was noted. The peritoneum was closed with #2-0 Vicryl in a running fashion. The fascia was closed with #0 Vicryl. Deep layer was irrigated and closed with #3-0 chromic, skin was closed with #4-0 Monocryl subcuticular sutures. Sponge, instrument, and needle counts were correct.
[2019-07-18] MEDS: LR 1,000 ML IV SCH (23:00)
[2019-07-18] MEDS: SERTRALINE HCL 50 MG TAB PO SCH (23:01)
[2019-07-18] MEDS: KETOROLAC 30 MG/ML VIAL (J1885) IV SCH (23:55)
[2019-07-19] VITALS (24 sets, daily range): BP systolic 127–163; BP diastolic 62–93
[2019-07-19] MEDS: LR 1,000 ML IV SCH ×2 (02:30→07:31)
[2019-07-19] MEDS: MAG Sulf (OBGYN) 20GM/500ML 20,000 MG in IV 1 EA IV SCH ×2 (04:42→14:13)
[2019-07-19] MEDS: KETOROLAC 30 MG/ML VIAL (J1885) IV SCH ×2 (05:32→12:11)
[2019-07-19] MEDS ORDERED: LABETALOL 200 MG TAB PO SCH (06:00)
[2019-07-19] MEDS ORDERED: NIFEdipine 10 MG CAP PO SCH ×3 (06:00→11:00)
[2019-07-19 06:58] LABS: HEMATOCRIT 38.6 % (36.0-47.0); HEMOGLOBIN 12.4 g/dl (12.0-15.5); MEAN CORPUSCULAR HEMOGLOBIN 31.6 pg (27.0-33.0); MEAN CORPUSCULAR HGB CONC 32.1 g/dl (32.0-36.5); MEAN CORPUSCULAR VOLUME 98.5 fl (80.0-96.0); PLATELET COUNT, AUTOMATED 325 10^3/uL (150-450); RED BLOOD COUNT 3.92 10^6/uL (4.00-5.40); WHITE BLOOD COUNT 16.1 10^3/uL (4.0-10.0)
[2019-07-19] MEDS: PRENATAL VITAMINS CHEWABLE TABLET PO SCH (09:12)
[2019-07-19] MEDS: NIFEdipine 10 MG CAP PO SCH ×3 (11:00→23:17)
[2019-07-19] MEDS: LABETALOL 200 MG TAB PO SCH ×2 (14:11→22:10)
[2019-07-19] MEDS: IBUPROFEN 800 MG TAB PO SCH (20:40)
[2019-07-19] MEDS: SERTRALINE HCL 50 MG TAB PO SCH (21:07)
[2019-07-19] MEDS: PERCOCET 5MG/325MG TAB PO PRN ×2 (23:17→23:26)
[2019-07-20 02:03] VITALS: BP 161/74
[2019-07-20] MEDS ORDERED: ACETAMINOPHEN 500 MG TAB PO PRN (02:15)
[2019-07-20] MEDS: IBUPROFEN 800 MG TAB PO SCH (04:00)
[2019-07-20 05:46] VITALS: BP 154/86
[2019-07-20] MEDS: LABETALOL 200 MG TAB PO SCH (05:46)
[2019-07-20 06:55] VITALS: BP 142/82
[2019-07-20 08:55] VITALS: BP 144/88
[2019-07-20] MEDS: PRENATAL VITAMINS CHEWABLE TABLET PO SCH (08:55)
[2019-07-20] MEDS: NIFEdipine 10 MG CAP PO SCH (08:55)
[2019-07-20] MEDS ORDERED: PERCOCET PO (11:14)
== END 2019-07-20 12:05 | disposition home or self-care (01) | DRG 540 ==
LOC: M LDO 09:12 → M LDI 11:58 → M OBS 07-20 06:10
PROVIDERS: ADMIT Advanced Practice Midwife; ATTEND Specialist
PROC: 3E0P7GC Introduction of Other Therapeutic Substance into Female Reproductive, Via Natural or Artificial Opening (ICD-10-PCS; 2019-07-17)
PROC: 0UB70ZZ Excision of Bilateral Fallopian Tubes, Open Approach (ICD-10-PCS; 2019-07-18)
PROC: 10D00Z1 Extraction of Products of Conception, Low, Open Approach (ICD-10-PCS; principal; 2019-07-18 17:35)
DX: O11.4 Pre-existing hypertension with pre-eclampsia, complicating childbirth (principal); Z3A.32 32 weeks gestation of pregnancy; O99.344 Other mental disorders complicating childbirth; F41.9 Anxiety disorder, unspecified; O10.02 Pre-existing essential hypertension complicating childbirth; O76 Abnormality in fetal heart rate and rhythm complicating labor and delivery; Z37.0 Single live birth; Z30.2 Encounter for sterilization

== ENCOUNTER 2019-07-22 14:58 | Outpatient (CLI) | payer OTHER ==
[~2019-07-22] VITALS: Ht 152.4 cm; Wt 104.9 kg
[2019-07-22] VITALS (13 sets, daily range): BP systolic 145–166; BP diastolic 72–97
[~2019-07-22 14:58] MED LIST changes: +CLON0.5T2 PO; +PERCOCET PO
[2019-07-22] MEDS ORDERED: NIFEdipine 10 MG CAP PO SCH (16:30)
[2019-07-22] MEDS: NIFEdipine 10 MG CAP PO SCH ×2 (16:51→22:46)
--- NOTE | 2019-07-22 17:03 | IPNPDOC ---
Text Note Date of Service The patient was seen on 07/22/19. NOTE Subjective: Patient is a 34-year-old female who presented to the office after taking her BP at the drug store. She reported her BP was elevated. The patient had a primary section and delivered on 07/17/19 due to chronic hypertension with superimposed preeclampsia with severe features. The patient is taking labetalol 200 mg TID and Nifedipine 10 mg TID. She currently denies and preeclamptic symptoms. BP in the office was 190/110. She does report increased anxiety. She has been on Zoloft which has been working for her up until recently. She was on Paxil and that helped with her depression and anxiety. She requested Klonopin which she was taking prior to to help with anxiety. The patient denies any thoughts of self harm or harm to others. She does report struggling with being in the NICU. She also complains of itching on her abdomen and legs from her PUPPS rash. She is taking Prednisone 20 mg daily for this. Medical History: essential hypertension, anxiety Surgical History: section with tubal ligation and elbow surgery Social History: ; non smoker; denies history of drug or alcohol abuse; denies physical, sexual, or emotional abuse. Family History: hypertension, CHF, COPD, hyperlipidemia, anxiety, epilepsy, thyroid disease Objective: VS and labs: see below. A+O x3; Respiratory rate is regular with no use of accessory muscles. Clear bilaterally to auscultation. Abdomen soft. Extremities: no edema; 3+ reflexes and 3-4 beats of clonus in her feet bilaterally. She is very teary eyed. Skin has plaques that are raised and red over her abdomen and thighs. Assessment: preeclampsia with severe range BP's, PUPPS Plan: Case reviewed with Dr. Jones and plan of care collaborated with him. Patient to be monitored for 24 hours. Increase labetalol to 300 mg TID from 200 mg of TID. Continue with Procardia 10 mg TID. CMP and CBC ordered. Orthostatic BPs done. VS to be done every 15 minutes initially and then every hour. If patients BPs continue to be in normal range and she continues to not be symptomatic she may go to the NICU to see her . Tonight she can have her BP's taken every 4 hours while asleep. Patient switched form Zoloft to Paxil and given Xanax one time dose to help with anxiety 0.25 mg. Patient may be transported to for continued monitoring. VS,Fishbone, I+O VS, Fishbone, I+O Vital Signs Date Time Temp Pulse Resp B/P (MAP) Pulse Ox O2 Delivery O2 Flow Rate FiO2 07/22/19 16:29 107 18 157/84 (108) 07/22/19 15:22 97.9 97 Room Air Vital Signs Label Value Date Time Pulse 100 07/22/19 1758 Respiratory Rate 18 bpm 07/22/19 1758 Blood Pressure Assessment 145/72 (96) 07/22/19 1758 Source Automatic Cuff (NIBP) Patient Temperature 99.1 degrees F 07/22/19 185 Temperature Source Temporal 07/22/19 185 Pulse 99 07/22/191 Respiratory Rate 18 bpm 07/22/19 185 Blood Pressure Assessment 157/84 (108) 07/22/19 185 Source Automatic Cuff (NIBP) Item Value Date Time Sodium Level 143 MEQ/L 07/22/19 1656 Potassium Level 4.1 MEQ/L 07/22/19 1656 Chloride Level 110 MEQ/L H 07/22/19 1656 Carbon Dioxide Level 25 MEQ/L 07/22/19 1656 Anion Gap 8 MEQ/L 07/22/19 1656 Blood Urea Nitrogen 13 MG/DL 07/22/19 1656 Creatinine 0.72 MG/DL 07/22/19 1656 Glomerular Filtration Rate > 60.0 07/22/19 1656 Fasting Glucose 97 MG/DL 07/22/19 1656 Calcium Level 8.7 MG/DL 07/22/19 1656 Total Bilirubin 0.2 MG/DL 07/22/19 1656 Aspartate Amino Transf (AST/SGOT) 89 U/L H 07/22/19 1656 Alanine Aminotransferase (ALT/SGPT) 115 U/L H 07/22/19 1656 Alkaline Phosphatase 93 U/L 07/22/19 1656 Total Protein 6.4 GM/DL 07/22/19 1656 Albumin 2.5 GM/DL L 07/22/19 1656 Albumin/Globulin Ratio 0.64 L 07/22/19 1656 Item Value Date Time White Blood Count 12.4 10^3/uL H 07/22/19 1656 Red Blood Count 3.84 10^6/uL L 07/22/19 1656 Hemoglobin 12.3 g/dl 07/22/19 1656 Hematocrit 38.2 % 07/22/19 1656 Mean Corpuscular Volume 99.5 fl H 07/22/19 1656 Mean Corpuscular Hemoglobin 32.0 pg 07/22/19 1656 Mean Corpuscular Hemoglobin Concent 32.2 g/dl 07/22/19 1656 Red Cell Distribution Width 14.2 % 07/22/19 1656 Platelet Count 382 10^3/uL 07/22/19 1656 Nucleated Red Blood Cells % (auto) 0.0 % 07/22/19 1656 MARTINE CEJA CNM Jul 22, 2019 17:03
[2019-07-22 17:11] LABS: HEMATOCRIT 38.2 % (36.0-47.0); HEMOGLOBIN 12.3 g/dl (12.0-15.5); MEAN CORPUSCULAR HGB CONC 32.2 g/dl (32.0-36.5); MEAN CORPUSCULAR VOLUME 99.5 fl (80.0-96.0); PLATELET COUNT, AUTOMATED 382 10^3/uL (150-450); RED BLOOD COUNT 3.84 10^6/uL (4.00-5.40); WHITE BLOOD COUNT 12.4 10^3/uL (4.0-10.0)
[2019-07-22 17:37] LABS: ALBUMIN 2.5 GM/DL (3.2-5.2); ALT/SGPT 115 U/L (12-78); BILIRUBIN,TOTAL 0.2 MG/DL (0.2-1.0); BLOOD UREA NITROGEN 13 MG/DL (7-18); CALCIUM LEVEL 8.7 MG/DL (8.5-10.1); CARBON DIOXIDE LEVEL 25 MEQ/L (21-32); CHLORIDE LEVEL 110 MEQ/L (98-107); CREATININE FOR GFR 0.72 MG/DL (0.55-1.30); GLOMERULAR FILTRATION RATE > 60.0 (>60); GLUCOSE, FASTING 97 MG/DL (70-100); POTASSIUM SERUM 4.1 MEQ/L (3.5-5.1); SODIUM LEVEL 143 MEQ/L (136-145); TOTAL PROTEIN 6.4 GM/DL (6.4-8.2)
[2019-07-22] MEDS ORDERED: ALPRAZolam 0.25 MG TAB PO ONE (19:30)
[2019-07-22] MEDS ORDERED: LABETALOL 100 MG TAB PO SCH (21:00)
[2019-07-22] MEDS ORDERED: PARoxetine 20 MG TAB PO ONE (21:00)
[2019-07-22] MEDS: LABETALOL 100 MG TAB PO SCH (22:01)
[2019-07-23] VITALS (12 sets, daily range): BP systolic 132–171; BP diastolic 65–90
[2019-07-23] MEDS: LABETALOL 100 MG TAB PO SCH (06:30)
[2019-07-23] MEDS: NIFEdipine 10 MG CAP PO SCH ×2 (08:06→15:55)
[2019-07-23] MEDS ORDERED: hydroCHLOROthiazide 25 MG TAB PO SCH (09:00)
[2019-07-23] MEDS ORDERED: ASPIRIN 81 MG ENTERIC TAB PO SCH (09:00)
[2019-07-23] MEDS ORDERED: predniSONE 20 MG TAB PO ONE (09:00)
[2019-07-23] MEDS ORDERED: LABETALOL 100 MG TAB PO SCH (14:00)
[2019-07-23] MEDS ORDERED: LABE10TAB PO (16:28)
[2019-07-23] MEDS ORDERED: HYDR25TAB PO (16:29)
--- NOTE | 2019-07-24 21:06 | DSES ---
DATE OF ADMISSION: 07/22/2019 DATE OF DISCHARGE: 07/23/2019 A 34-year-old female postoperative day number six, status post section for chronic hypertension superimposed preeclampsia, presents to the hospital after having elevated blood pressure in the office of 190/110. She was currently taking nifedipine 10 mg three times a day and labetalol 200 mg three times a day upon discharge from the hospital. She has been on prednisone for a severe PUPPP rash. She has had problems with anxiety. HOSPITAL COURSE: The patient was noted to have severe range blood pressures in spite of previous treatment with antihypertensives. Her labetalol was subsequently increased to 400 mg three times a day. Hydrochlorothiazide 25 mg daily was also added. Her blood pressure maintained stability over numerous readings at a range of about 140/80. She had no side effects from the blood pressure medicines. She was deemed stable for discharge on 07/23/2019. ADMISSION DIAGNOSIS: Postoperative day six, severe hypertension. DISCHARGE DIAGNOSIS: Postoperative day six, severe hypertension. DISPOSITION: The patient will take three different antihypertensives as mentioned above. She will monitor her blood pressure daily. She will followup in the office on 08/02/2019.
== END 2019-07-23 16:45 | disposition home or self-care (01) ==
LOC: M LDO 14:58 → M OBS 21:05 → M LDO 07-23 16:45
PROVIDERS: ATTEND Advanced Practice Midwife
DX: O14.15 Severe pre-eclampsia, complicating the puerperium (principal); Z79.899 Other long term (current) drug therapy

== ENCOUNTER → 2020-02-24 | Outpatient (CLI) | payer OTHER ==
[~2020-02-24] MED LIST changes: +HYDR25TAB PO; +LABE10TAB PO
--- NOTE | 2020-02-24 12:57 | REPPI ---
Clinical: Pain Technique: AP, lateral, bilateral oblique views left wrist . Findings: The carpal bones, surrounding osseous structures, soft tissues, and joint spaces are normal. There is no evidence for acute fracture or dislocation. No subcutaneous emphysema or radiodense foreign body. Impression: Normal left wrist series. No acute fracture or dislocation Electronically Signed by Rehan Arceo MD 02/24/2020 12:43 P
== END ==
LOC: M PLAIMG 11:19
PROVIDERS: ATTEND Nurse Practitioner Family
DX: M25.532 Pain in left wrist (principal)

== ENCOUNTER → 2020-12-08 | Outpatient (REF) | payer OTHER ==
[~2020-12-08] MED LIST changes: +HYDR-3490 PO; -HYDR25TAB PO; +LABE100T4; +LABE100T4 PO; -LABE10TAB; -LABE10TAB PO
== END ==
LOC: M SFHCWAGY 14:59
PROVIDERS: ATTEND Specialist
DX: Z12.4 Encounter for screening for malignant neoplasm of cervix (principal)

== ENCOUNTER → 2020-12-14 | Outpatient (REF) | payer OTHER ==
[2020-12-14 18:56] LABS: HCG, SERUM QUALITATIVE NEGATIVE (NEGATIVE)
== END ==
LOC: M PLALAB 14:45
PROVIDERS: ATTEND Advanced Practice Midwife
DX: R10.2 Pelvic and perineal pain (principal); N92.6 Irregular menstruation, unspecified

== ENCOUNTER 2021-02-11 16:28 | Emergency (ER) | payer OTHER ==
[~2021-02-11] VITALS: Ht 149.9 cm; Wt 105.6 kg
[2021-02-11] MEDS ORDERED: LABE20TAB (16:39)
[2021-02-11] MEDS ORDERED: PARO30TA4 (16:39)
[2021-02-11 17:41] LABS: BASO % 0.2 % (0.0-1.0); EOS # 0.1 10^3/uL (0.0-0.5); EOS % 1.2 % (0.0-3.0); HEMATOCRIT 39.5 % (36.0-47.0); HEMOGLOBIN 13.2 g/dl (12.0-15.5); LYMPH # 0.8 10^3/uL (1.5-5.0); LYMPH % 10.1 % (24.0-44.0); MEAN CORPUSCULAR HEMOGLOBIN 29.7 pg (27.0-33.0); MEAN CORPUSCULAR HGB CONC 33.4 g/dl (32.0-36.5); MEAN CORPUSCULAR VOLUME 88.8 fl (80.0-96.0); MONO # 0.5 10^3/uL (0.0-0.8); MONO % 6.2 % (2.0-8.0); NEUTROPHILS # 6.5 10^3/uL (1.5-8.5); NEUTROPHILS % 81.8 % (36.0-66.0); PLATELET COUNT, AUTOMATED 364 10^3/uL (150-450); RED BLOOD COUNT 4.45 10^6/uL (4.00-5.40)
[2021-02-11 18:07] LABS: ALBUMIN 3.7 GM/DL (3.2-5.2); ALT/SGPT 36 U/L (12-78); BILIRUBIN,DIRECT 0.1 MG/DL (0.0-0.2); BILIRUBIN,TOTAL 0.6 MG/DL (0.2-1.0); BLOOD UREA NITROGEN 12 MG/DL (7-18); CALCIUM LEVEL 8.9 MG/DL (8.5-10.1); CARBON DIOXIDE LEVEL 22 MEQ/L (21-32); CHLORIDE LEVEL 110 MEQ/L (98-107); CREATININE FOR GFR 0.74 MG/DL (0.55-1.30); GLOMERULAR FILTRATION RATE > 60.0 (>60); GLUCOSE, FASTING 87 MG/DL (70-100); LIPASE 131 U/L (73-393); SODIUM LEVEL 141 MEQ/L (136-145); TOTAL PROTEIN 7.6 GM/DL (6.4-8.2)
[2021-02-11 18:13] LABS: HCG, SERUM QUALITATIVE NEGATIVE (NEGATIVE)
[2021-02-11] MEDS ORDERED: ONDANSETRON 4MG/2ML VIAL IV ONE (18:45)
[2021-02-11] MEDS ORDERED: GI COCKTAIL 50ML BTL(HYOSCYAMINE/MAALOX/LIDOCAINE VISCOUS)(1:3:1) PO ONE (18:45)
[2021-02-11 19:12] VITALS: BP 156/84
[2021-02-11] MEDS ORDERED: ONDA4TAB6 PO (19:28)
== END 2021-02-11 19:40 | disposition home or self-care (01) ==
LOC: M ED 16:28
DX: R10.13 Epigastric pain (principal); R11.2 Nausea with vomiting, unspecified; R19.7 Diarrhea, unspecified; I10 Essential (primary) hypertension; Z79.899 Other long term (current) drug therapy
CPT/HCPCS: 80048; 80076; 81001; 83690; 84703; 85025; 96374; 99284; J2405

== ENCOUNTER → 2021-03-23 | Outpatient (CLI) | payer OTHER ==
[~2021-03-23] MED LIST changes: +LABE20TAB; +ONDA4TAB6 PO; +PARO30TA4
[2021-03-23 17:51] LABS: BLOOD UREA NITROGEN 12 MG/DL (7-18); CALCIUM LEVEL 8.3 MG/DL (8.5-10.1); CARBON DIOXIDE LEVEL 29 MEQ/L (21-32); CHLORIDE LEVEL 109 MEQ/L (98-107); CREATININE FOR GFR 0.69 MG/DL (0.55-1.30); GLOMERULAR FILTRATION RATE > 60.0 (>60); GLUCOSE, FASTING 86 MG/DL (70-100); POTASSIUM SERUM 3.8 MEQ/L (3.5-5.1); SODIUM LEVEL 141 MEQ/L (136-145)
[2021-03-23 18:02] LABS: MALB URINE SIEMENS 17.1 MG/L
== END ==
LOC: M PLALAB 14:55
PROVIDERS: ATTEND Nurse Practitioner Family
DX: I10 Essential (primary) hypertension (principal)

== ENCOUNTER → 2022-07-05 | Outpatient (CLI) | payer OTHER ==
[~2022-07-05] MED LIST changes: -LABE100T4; -LABE100T4 PO; +LABE100T6; +LABE100T6 PO
[2022-07-05 16:10] LABS: ALBUMIN 3.5 G/DL (3.2-5.2); CARBON DIOXIDE LEVEL 29 MMOL/L (20-31); CHLORIDE LEVEL 102 MMOL/L (98-107); POTASSIUM SERUM 4.8 MMOL/L (3.5-5.1); SODIUM LEVEL 139 MMOL/L (136-145)
[2022-07-05 16:13] LABS: BLOOD UREA NITROGEN 13 MG/DL (9-23)
[2022-07-05 16:14] LABS: ALKALINE PHOSPHATASE 91 U/L (46-116)
[2022-07-05 16:15] LABS: CALCIUM LEVEL 8.8 MG/DL (8.5-10.1); GLUCOSE, FASTING 83 MG/DL (60-100)
[2022-07-05 16:16] LABS: TRIGLYCERIDES LEVEL 154 MG/DL (<150)
[2022-07-05 16:17] LABS: AST/SGOT 17 U/L (<34); CHOLESTEROL LEVEL 192 MG/DL (<200); CREATININE FOR GFR 0.79 MG/DL (0.55-1.30); GLOMERULAR FILTRATION RATE > 60.0 (>60)
[2022-07-05 16:18] LABS: BILIRUBIN,TOTAL 0.4 MG/DL (0.3-1.2); CHOLESTEROL RISK RATIO 3.56 (<5); HDL CHOLESTEROL 53.9 MG/DL (>40); LDL CHOLESTEROL 107.3 MG/DL (<100); NON-HDL-C 138 MG/DL; THYROID STIMULATING HORMONE 1.714 uIU/ML (0.55-4.78); TOTAL PROTEIN 6.9 G/DL (5.7-8.2)
[2022-07-05 16:41] LABS: ALT/SGPT 17 U/L (7.0-40)
[2022-07-05 17:47] LABS: HEMOGLOBIN A1c 5.2 % (4.0-6.0)
== END ==
LOC: M PLALAB 11:38
PROVIDERS: ATTEND Family Medicine
DX: I10 Essential (primary) hypertension (principal)

== ENCOUNTER → 2023-07-29 | Outpatient (REF) | payer OTHER | LOC: M LAB REF 18:00 | PROVIDERS: ATTEND Physician Assistant | DX: J06.9 Acute upper respiratory infection, unspecified (principal) ==

== ENCOUNTER → 2023-09-01 | Outpatient (CLI) | payer OTHER ==
[2023-09-01 07:46] LABS: HEMATOCRIT 36.7 % (36.0-47.0); HEMOGLOBIN 12.2 g/dl (12.0-15.5); MEAN CORPUSCULAR HEMOGLOBIN 30.5 pg (27.0-33.0); MEAN CORPUSCULAR HGB CONC 33.2 g/dl (32.0-36.5); MEAN CORPUSCULAR VOLUME 91.8 fl (80.0-96.0); PLATELET COUNT, AUTOMATED 290 10^3/uL (150-450); WHITE BLOOD COUNT 6.7 10^3/uL (4.0-10.0)
[2023-09-01 08:10] LABS: LIPASE 33 U/L (12-53)
[2023-09-01 08:12] LABS: ALBUMIN 3.2 G/DL (3.2-5.2); ALKALINE PHOSPHATASE 80 U/L (46-116); ALT/SGPT 18 U/L (7.0-40); AST/SGOT 14 U/L (<34); BILIRUBIN,TOTAL 0.4 MG/DL (0.3-1.2); BLOOD UREA NITROGEN 12 MG/DL (9-23); CALCIUM LEVEL 8.2 MG/DL (8.5-10.1); CARBON DIOXIDE LEVEL 31 MMOL/L (20-31); CHLORIDE LEVEL 108 MMOL/L (98-107); CREATININE FOR GFR 0.73 MG/DL (0.55-1.30); GLOMERULAR FILTRATION RATE > 60.0 (>58); GLUCOSE, FASTING 96 MG/DL (60-100); POTASSIUM SERUM 4.2 MMOL/L (3.5-5.1); SODIUM LEVEL 142 MMOL/L (136-145); TOTAL PROTEIN 6.2 G/DL (5.7-8.2)
== END ==
LOC: M RAD 06:23
PROVIDERS: ATTEND Student in an Organized Health Care Education/Training Program
DX: K80.20 Calculus of gallbladder without cholecystitis without obstruction (principal); R10.11 Right upper quadrant pain; R19.7 Diarrhea, unspecified

== ENCOUNTER → 2023-09-08 | Outpatient (CLI) | payer OTHER | LOC: M WHC 12:17 | PROVIDERS: ATTEND Student in an Organized Health Care Education/Training Program | DX: Z12.31 Encounter for screening mammogram for malignant neoplasm of breast (principal); R92.323 Mammographic fibroglandular density, bilateral breasts ==

== ENCOUNTER 2023-12-10 03:18 | Emergency (ER) | payer OTHER ==
[~2023-12-10] VITALS: Ht 149.9 cm; Wt 109.0 kg
[2023-12-10] MEDS ORDERED: LISI20TA33 (03:25)
[2023-12-10] MEDS: NS 1,000 ML IV ONE (03:59)
[2023-12-10] MEDS ORDERED: ISOVUE-370 76% 100ML VIAL As Ordered ONE (04:17)
[2023-12-10] MEDS: ONDANSETRON 4MG 2ML VIAL IV ONE (04:19)
[2023-12-10] MEDS: KETOROLAC 30 MG/ML 1ML VIAL IV ONE ×2 (04:20→09:38)
[2023-12-10 04:30] LABS: LIPASE 53 U/L (12-53)
[2023-12-10 04:32] LABS: ALBUMIN 3.4 G/DL (3.2-5.2); ALKALINE PHOSPHATASE 88 U/L (46-116); ALT/SGPT 20 U/L (7.0-40); AST/SGOT 17 U/L (<34); BASO # 0.1 10^3/uL (0.0-0.2); BASO % 0.7 % (0.0-1.0); BILIRUBIN,DIRECT < 0.1 MG/DL (<0.4); BILIRUBIN,TOTAL 0.2 MG/DL (0.3-1.2); BLOOD UREA NITROGEN 17 MG/DL (9-23); CALCIUM LEVEL 8.8 MG/DL (8.5-10.1); CARBON DIOXIDE LEVEL 27 MMOL/L (20-31); CHLORIDE LEVEL 105 MMOL/L (98-107); CREATININE FOR GFR 1.07 MG/DL (0.55-1.30); EOS # 0.2 10^3/uL (0.0-0.5); EOS % 2.1 % (0.0-3.0); GLOMERULAR FILTRATION RATE > 60.0 (>58); GLUCOSE, FASTING 121 MG/DL (60-100); HEMATOCRIT 38.9 % (36.0-47.0); HEMOGLOBIN 13.4 g/dl (12.0-15.5); LYMPH % 45.6 % (24.0-44.0); MEAN CORPUSCULAR HEMOGLOBIN 30.5 pg (27.0-33.0); MEAN CORPUSCULAR HGB CONC 34.4 g/dl (32.0-36.5); MEAN CORPUSCULAR VOLUME 88.4 fl (80.0-96.0); MONO # 0.5 10^3/uL (0.0-0.8); MONO % 5.5 % (2.0-8.0); NEUTROPHILS # 4.1 10^3/uL (1.5-8.5); NEUTROPHILS % 45.9 % (36.0-66.0); PLATELET COUNT, AUTOMATED 398 10^3/uL (150-450); POTASSIUM SERUM 3.6 MMOL/L (3.5-5.1); SODIUM LEVEL 139 MMOL/L (136-145); WHITE BLOOD COUNT 8.8 10^3/uL (4.0-10.0)
[2023-12-10 04:33] LABS: HCG, SERUM QUALITATIVE NEGATIVE (NEGATIVE)
[2023-12-10 06:28] LABS: BASO # 0.1 10^3/uL (0.0-0.2); BASO % 0.7 % (0.0-1.0); EOS # 0.1 10^3/uL (0.0-0.5); EOS % 0.8 % (0.0-3.0); HEMATOCRIT 35.6 % (36.0-47.0); HEMOGLOBIN 12.2 g/dl (12.0-15.5); LYMPH # 1.9 10^3/uL (1.5-5.0); MEAN CORPUSCULAR HEMOGLOBIN 30.6 pg (27.0-33.0); MEAN CORPUSCULAR HGB CONC 34.3 g/dl (32.0-36.5); MEAN CORPUSCULAR VOLUME 89.2 fl (80.0-96.0); MONO # 0.5 10^3/uL (0.0-0.8); MONO % 4.2 % (2.0-8.0); NEUTROPHILS # 8.1 10^3/uL (1.5-8.5); PLATELET COUNT, AUTOMATED 334 10^3/uL (150-450); RED BLOOD COUNT 3.99 10^6/uL (4.00-5.40); WHITE BLOOD COUNT 10.7 10^3/uL (4.0-10.0)
[2023-12-10 06:50] LABS: LIPASE 49 U/L (12-53)
[2023-12-10 06:56] LABS: ALBUMIN 3.1 G/DL (3.2-5.2); ALKALINE PHOSPHATASE 84 U/L (46-116); ALT/SGPT 17 U/L (7.0-40); AST/SGOT 15 U/L (<34); BILIRUBIN,TOTAL 0.2 MG/DL (0.3-1.2); BLOOD UREA NITROGEN 17 MG/DL (9-23); CALCIUM LEVEL 8.3 MG/DL (8.5-10.1); CARBON DIOXIDE LEVEL 27 MMOL/L (20-31); CHLORIDE LEVEL 106 MMOL/L (98-107); CREATININE FOR GFR 0.98 MG/DL (0.55-1.30); GLOMERULAR FILTRATION RATE > 60.0 (>58); GLUCOSE, FASTING 113 MG/DL (60-100); POTASSIUM SERUM 3.9 MMOL/L (3.5-5.1); SODIUM LEVEL 139 MMOL/L (136-145); TOTAL PROTEIN 6.4 G/DL (5.7-8.2)
[2023-12-10] MEDS: PIPERACILLIN/TAZOBACTAM SOD 4.5 GM in D5W MINI-BAG PLUS 50 ML IV ONE (07:18)
[2023-12-10] MEDS ORDERED: AMOX875T2 PO (09:26)
[2023-12-10] MEDS ORDERED: IBUP-1022 PO (09:26)
[2023-12-10 09:31] VITALS: BP 130/67; TEMP 98; O2SAT 98
== END 2023-12-10 09:42 | disposition home or self-care (01) ==
LOC: M ED 03:18
DX: K81.0 Acute cholecystitis (principal); I10 Essential (primary) hypertension; K21.9 Gastro-esophageal reflux disease without esophagitis; F41.9 Anxiety disorder, unspecified; Z79.2 Long term (current) use of antibiotics; Z79.1 Long term (current) use of non-steroidal anti-inflammatories (NSAID); Z79.899 Other long term (current) drug therapy
CPT/HCPCS: 74177; 80048; 80053; 80076; 81001; 83690; 84703; 85025; 96361; 96365; 96366; 96374; 96375; 99284; J1885; J2405; J2543; Q9967

== ENCOUNTER 2024-02-01 07:53 | Day surgery (SDC) | payer OTHER ==
[~2024-02-01] VITALS: Ht 149.9 cm; Wt 108.4 kg
[~2024-02-01 07:53] MED LIST changes: +AMOX875T2 PO; +IBUP-1022 PO; +LISI20TA33; +LISI20TA33 PO; +ONDA-282 PO; -ONDA4TAB6 PO; +PARO30TA65 PO
[2024-02-01] MEDS ORDERED: MIDAZOLAM INJ 2MG/2ML VIAL As Ordered ONE (08:03)
[2024-02-01] MEDS ORDERED: fentaNYL 100 MCG/2 ML INJECTION As Ordered ONE (08:03)
[2024-02-01] MEDS ORDERED: ROCURONIUM BROMIDE 50MG/5ML VIAL As Ordered ONE (08:04)
[2024-02-01] MEDS ORDERED: propofoL 200 MG/20 ML VIAL As Ordered ONE (08:04)
[2024-02-01] MEDS ORDERED: LIDOCAINE 2% 100MG/5ML SDV (FOR ANES.) As Ordered ONE (08:04)
[2024-02-01] MEDS ORDERED: LR 1,000 ML IV SCH ×2 (09:15→10:45)
[2024-02-01] MEDS ORDERED: ACETAMINOPHEN 1000MG 100ML IV BAG As Ordered ONE (09:36)
[2024-02-01] MEDS ORDERED: KETOROLAC 60MG 2ML VIAL As Ordered ONE (09:45)
[2024-02-01] MEDS ORDERED: ONDANSETRON 4MG 2ML VIAL As Ordered ONE (09:45)
[2024-02-01] MEDS ORDERED: SUGAMMADEX SODIUM 500 MG/5 ML VIAL (BRIDION) As Ordered ONE (09:45)
[2024-02-01] MEDS ORDERED: GLYCOPYRROLATE INJ 0.2 MG/ML 2 ML VIAL As Ordered ONE (10:04)
[2024-02-01] MEDS ORDERED: HYDROMORPHONE HCL 0.5 MG/ 0.5 ML SYRINGE IV PRN (10:45)
[2024-02-01] MEDS ORDERED: fentaNYL 100 MCG/2 ML INJECTION IV PRN (10:45)
[2024-02-01] MEDS ORDERED: oxyCODONE 5MG TAB PO PRN (10:45)
[2024-02-01] MEDS: ONDANSETRON 4MG 2ML VIAL IV PRN (11:26)
[2024-02-01] MEDS ORDERED: NORCO, ANEXSIA 5/325MG TABLET (HYDROcodone/ACETAMINOPHEN) PO PRN (11:30)
[2024-02-01 12:09] VITALS: BP 138/77; TEMP 97.7; O2SAT 98
== END 2024-02-01 12:13 | disposition home or self-care (01) ==
LOC: M SDC 07:53
PROVIDERS: ATTEND Surgery
DX: K80.12 Calculus of gallbladder with acute and chronic cholecystitis without obstruction (principal); Z68.42 Body mass index [BMI] 45.0-49.9, adult; R06.83 Snoring; Z79.899 Other long term (current) drug therapy
CPT/HCPCS: 47562; 88304; J0131; J0665; J1885; J2250; J2405; J3010; S2900

== ENCOUNTER 2024-02-25 21:38 | Emergency (ER) | payer OTHER ==
[~2024-02-25] VITALS: Ht 149.9 cm; Wt 109.8 kg
[2024-02-25 21:39] VITALS: BP 142/77; TEMP 97.8; O2SAT 98
== END 2024-02-25 23:10 | disposition left against medical advice (07) ==
LOC: M ED 21:38
DX: Z53.21 Procedure and treatment not carried out due to patient leaving prior to being seen by health care provider (principal)

== ENCOUNTER → 2024-05-10 | Outpatient (CLI) | payer OTHER ==
[~2024-05-10] MED LIST changes: -NIFE10CA2 PO; +NIFE10CA61 PO
[2024-05-10 16:05] LABS: HEMOGLOBIN A1c 5.2 % (4.0-6.0)
[2024-05-10 16:07] LABS: CHOLESTEROL RISK RATIO 3.97 (<5); HDL CHOLESTEROL 45.3 MG/DL (>40); LDL CHOLESTEROL 116.5 MG/DL (<100); NON-HDL-C 134.7 MG/DL
[2024-05-10 16:09] LABS: THYROID STIMULATING HORMONE 1.535 uIU/ML (0.55-4.78); TOTAL 25(OH) VITAMIN D 20.4 NG/ML (20.0-100.0)
== END ==
LOC: M PLALAB 13:15
PROVIDERS: ATTEND Student in an Organized Health Care Education/Training Program
DX: Z00.00 Encounter for general adult medical examination without abnormal findings (principal); E55.9 Vitamin D deficiency, unspecified; Z13.6 Encounter for screening for cardiovascular disorders

== ENCOUNTER → 2024-09-04 | Outpatient (REF) | payer OTHER | LOC: M SFHCWAGY 17:28 | PROVIDERS: ATTEND Specialist | DX: R87.619 Unspecified abnormal cytological findings in specimens from cervix uteri (principal) ==

== ENCOUNTER 2024-11-03 20:50 | Emergency (ER) | payer OTHER ==
[~2024-11-03] VITALS: Ht 149.9 cm; Wt 112.0 kg
[2024-11-03 21:32] LABS: KETONE, URINE AUTO RFX NEGATIVE (NEGATIVE); LEUKOCYTE ESTERASE UR AUTO RFX NEGATIVE (NEGATIVE); NITRITE, URINE AUTO RFX NEGATIVE (NEGATIVE); RBC, URINE AUTO RFX 1 /HPF (0-3); SQUAM EPITHELIAL CELL UR AURFX 3 /HPF (0-6); WBC, URINE AUTO RFX 2 /HPF (0-3)
[2024-11-03 22:12] LABS: BASO # 0.1 10^3/uL (0.0-0.2); BASO % 0.8 % (0.0-1.0); EOS # 0.2 10^3/uL (0.0-0.5); EOS % 2.7 % (0.0-3.0); HEMOGLOBIN 12.8 g/dl (12.0-15.5); LYMPH # 2.8 10^3/uL (1.5-5.0); LYMPH % 31.9 % (24.0-44.0); MEAN CORPUSCULAR HEMOGLOBIN 30.7 pg (27.0-33.0); MEAN CORPUSCULAR HGB CONC 33.7 g/dl (32.0-36.5); MEAN CORPUSCULAR VOLUME 91.1 fl (80.0-96.0); MONO # 0.6 10^3/uL (0.0-0.8); MONO % 6.6 % (2.0-8.0); NEUTROPHILS # 5.1 10^3/uL (1.5-8.5); NEUTROPHILS % 57.8 % (36.0-66.0); PLATELET COUNT, AUTOMATED 339 10^3/uL (150-450); RED BLOOD COUNT 4.17 10^6/uL (4.00-5.40); WHITE BLOOD COUNT 8.9 10^3/uL (4.0-10.0)
[2024-11-03 22:39] LABS: LIPASE 46 U/L (12-53)
[2024-11-03 22:41] LABS: ALBUMIN 3.3 G/DL (3.2-5.2); ALKALINE PHOSPHATASE 80 U/L (35-104); ALT/SGPT 21 U/L (7.0-40); AST/SGOT 11 U/L (<34); BILIRUBIN,DIRECT < 0.1 MG/DL (<0.4); BILIRUBIN,TOTAL 0.2 MG/DL (0.3-1.2); HCG, SERUM QUANTITATIVE < 2.6 MIU/ML (<4.2); TOTAL PROTEIN 6.9 G/DL (5.7-8.2)
[2024-11-03] MEDS: KETOROLAC 60MG 2ML VIAL IM ONE (23:21)
[2024-11-04 00:26] VITALS: BP 143/77; TEMP 98.5; O2SAT 100
== END 2024-11-04 00:27 | disposition home or self-care (01) ==
LOC: M ED 20:50
DX: R10.32 Left lower quadrant pain (principal); I10 Essential (primary) hypertension; Z79.1 Long term (current) use of non-steroidal anti-inflammatories (NSAID); Z79.899 Other long term (current) drug therapy
CPT/HCPCS: 74176; 80076; 81001; 83690; 84702; 85025; 96372; 99283; J1885

== ENCOUNTER → 2024-11-22 | Outpatient (CLI) | payer OTHER | LOC: M WHC 12:21 | PROVIDERS: ATTEND Specialist | DX: Z12.31 Encounter for screening mammogram for malignant neoplasm of breast (principal) ==

== ENCOUNTER → 2024-11-26 | Outpatient (CLI) | payer OTHER ==
[2024-11-26 16:02] LABS: BLOOD UREA NITROGEN 11 MG/DL (9-23); CALCIUM LEVEL 8.3 MG/DL (8.5-10.1); CARBON DIOXIDE LEVEL 28 MMOL/L (20-31); CHLORIDE LEVEL 105 MMOL/L (98-107); CHOLESTEROL LEVEL 193 MG/DL (<200); CHOLESTEROL RISK RATIO 3.69 (<5); CREATININE FOR GFR 0.74 MG/DL (0.55-1.30); GLOMERULAR FILTRATION RATE > 90.0 (>58); GLUCOSE, FASTING 84 MG/DL (60-100); HDL CHOLESTEROL 52.2 MG/DL (>40); NON-HDL-C 140.8 MG/DL; POTASSIUM SERUM 4.4 MMOL/L (3.5-5.1); SODIUM LEVEL 137 MMOL/L (136-145); TRIGLYCERIDES LEVEL 119 MG/DL (<150)
[2024-11-26 16:17] LABS: HEMOGLOBIN A1c 5.2 % (4.0-6.0)
== END ==
LOC: M PLALAB 14:14
PROVIDERS: ATTEND Student in an Organized Health Care Education/Training Program
DX: Z01.818 Encounter for other preprocedural examination (principal)

== ENCOUNTER 2024-12-04 11:52 | Day surgery (SDC) | payer OTHER ==
[~2024-12-04] VITALS: Ht 149.9 cm; Wt 109.8 kg
[2024-12-04] MEDS ORDERED: ONDANSETRON 4MG 2ML VIAL As Ordered ONE (12:00)
[2024-12-04] MEDS ORDERED: propofoL 200 MG/20 ML VIAL As Ordered ONE (12:00)
[2024-12-04] MEDS ORDERED: fentaNYL 100 MCG/2 ML INJECTION As Ordered ONE (12:00)
[2024-12-04] MEDS ORDERED: LIDOCAINE 2% 100MG/5ML SDV (FOR ANES.) As Ordered ONE (12:00)
[2024-12-04] MEDS ORDERED: MIDAZOLAM INJ 2MG/2ML VIAL As Ordered ONE (12:00)
[2024-12-04] MEDS ORDERED: ROCURONIUM BROMIDE 50MG/5ML VIAL As Ordered ONE (12:00)
[2024-12-04] MEDS ORDERED: KETOROLAC 30 MG/ML 1ML VIAL As Ordered ONE (12:02)
[2024-12-04] MEDS ORDERED: SUGAMMADEX SODIUM 500 MG/5 ML VIAL (BRIDION) As Ordered ONE (12:02)
[2024-12-04 12:23] LABS: HEMATOCRIT 40.5 % (36.0-47.0); HEMOGLOBIN 13.6 g/dl (12.0-15.5); MEAN CORPUSCULAR HEMOGLOBIN 30.6 pg (27.0-33.0); MEAN CORPUSCULAR HGB CONC 33.6 g/dl (32.0-36.5); MEAN CORPUSCULAR VOLUME 91.2 fl (80.0-96.0); PLATELET COUNT, AUTOMATED 348 10^3/uL (150-450); RED BLOOD COUNT 4.44 10^6/uL (4.00-5.40); WHITE BLOOD COUNT 7.6 10^3/uL (4.0-10.0)
[2024-12-04] MEDS ORDERED: ACETAMINOPHEN 1000MG/100ML IV BAG As Ordered ONE (12:31)
[2024-12-04] MEDS ORDERED: HYDROmorphone HCL 2MG/ML 1ML VIAL As Ordered ONE (12:34)
[2024-12-04] MEDS: LR 1,000 ML IV SCH (12:39)
[2024-12-04] MEDS: ceFAZolin SOD 2 GM IV ONCE IV ONE (12:53)
[2024-12-04] MEDS ORDERED: dexmedeTOMIDine (4MCG/ML)200MCG/50ML BTL (PRECEDEX) As Ordered ONE (13:42)
[2024-12-04] MEDS ORDERED: PHENYLephrine 500MCG 5ML (100MCG/ML) SYRINGE As Ordered ONE (13:55)
[2024-12-04] MEDS ORDERED: LR 1,000 ML IV SCH (15:00)
[2024-12-04] MEDS ORDERED: fentaNYL 100 MCG/2 ML INJECTION IV PRN (15:00)
[2024-12-04] MEDS ORDERED: MEPERIDINE 25 MG/ML 1ML VIAL IV PRN (15:00)
[2024-12-04] MEDS ORDERED: oxyCODONE 5MG TAB PO PRN (15:00)
[2024-12-04] MEDS ORDERED: HYDROMORPHONE HCL 0.5 MG/ 0.5 ML SYRINGE IV PRN (15:00)
[2024-12-04] MEDS ORDERED: IBUP-1022 PO (15:09)
[2024-12-04] MEDS: ONDANSETRON 4MG 2ML VIAL IV PRN (15:13)
[2024-12-04] MEDS: METOCLOPRAMIDE INJ 10MG/2ML VIAL IV PRN (15:24)
[2024-12-04 17:15] VITALS: BP 138/86; TEMP 97.2; O2SAT 97
== END 2024-12-04 17:18 | disposition home or self-care (01) ==
LOC: M SDC 11:52
PROVIDERS: ATTEND Specialist
DX: N92.0 Excessive and frequent menstruation with regular cycle (principal); N80.00 Endometriosis of the uterus, unspecified; N88.8 Other specified noninflammatory disorders of cervix uteri; N83.292 Other ovarian cyst, left side; N83.291 Other ovarian cyst, right side; N83.12 Corpus luteum cyst of left ovary; N83.11 Corpus luteum cyst of right ovary; N83.8 Other noninflammatory disorders of ovary, fallopian tube and broad ligament; N32.89 Other specified disorders of bladder; N87.9 Dysplasia of cervix uteri, unspecified; Z98.51 Tubal ligation status
CPT/HCPCS: 36415; 58571; 85027; 86850; 86900; 86901; 88307; J0131; J0665; J0690; J1100; J1171; J1885; J2250; J2371; J2405; J2765; J3010; S2900

== ENCOUNTER → 2025-06-03 | Outpatient (REF) | payer OTHER ==
[~2025-06-03] MED LIST changes: -IBUP-1022 PO; +IBUP600T42 PO
== END ==
LOC: M LAB REF 20:59
PROVIDERS: ATTEND Physician Assistant Medical
DX: B34.9 Viral infection, unspecified (principal)

== ENCOUNTER → 2025-07-11 | Outpatient (CLI) | payer OTHER ==
[~2025-07-11] MED LIST changes: -LABE100T6; -LABE100T6 PO; +LABE100T91; +LABE100T91 PO
[2025-07-11 17:41] LABS: BASO # 0.1 10^3/uL (0.0-0.2); BASO % 1.0 % (0.0-1.0); EOS # 0.3 10^3/uL (0.0-0.5); EOS % 4.9 % (0.0-3.0); LYMPH # 2.4 10^3/uL (1.5-5.0); LYMPH % 35.0 % (24.0-44.0); MONO # 0.4 10^3/uL (0.0-0.8); MONO % 6.5 % (2.0-8.0); NEUTROPHILS # 3.5 10^3/uL (1.5-8.5); NEUTROPHILS % 52.3 % (36.0-66.0); PLATELET COUNT, AUTOMATED 351 10^3/uL (150-450)
[2025-07-11 18:07] LABS: ALT/SGPT 34 U/L (7.0-40); AST/SGOT 20 U/L (<34); CALCIUM LEVEL 8.5 MG/DL (8.5-10.1); CARBON DIOXIDE LEVEL 28 MMOL/L (20-31); CHLORIDE LEVEL 107 MMOL/L (98-107); CHOLESTEROL LEVEL 178 MG/DL (<200); CHOLESTEROL RISK RATIO 4.33 (<5); CREATININE FOR GFR 0.77 MG/DL (0.55-1.30); GLOMERULAR FILTRATION RATE > 90.0 (>58); LDL CHOLESTEROL 103.1 MG/DL (<100); NON-HDL-C 136.9 MG/DL; POTASSIUM SERUM 4.4 MMOL/L (3.5-5.1); SODIUM LEVEL 146 MMOL/L (136-145); TRIGLYCERIDES LEVEL 169 MG/DL (<150)
[2025-07-11 18:12] LABS: FREE T4 1.10 NG/DL (0.89-1.76)
== END ==
LOC: M PLALAB 15:50
PROVIDERS: ATTEND Student in an Organized Health Care Education/Training Program
DX: I10 Essential (primary) hypertension (principal); G47.33 Obstructive sleep apnea (adult) (pediatric)